=== PATIENT | female | born 1960 | race Caucasian/White ===

== ENCOUNTER 2016-10-21 23:54 | Emergency (ER) | payer OTHER ==
[~2016-10-21] VITALS: Ht 165.1 cm; Wt 61.4 kg
[2016-10-22] MEDS ORDERED: IBUPROFEN 600 MG TABLET PO ONE (01:00)
[2016-10-22] MEDS ORDERED: HYDROmorphone 2 MG/ML SYRINGE IM ONE (01:00)
[2016-10-22] MEDS ORDERED: PROMETHAZINE HCL 25 MG/ML VIAL IM ONE (01:00)
[2016-10-22] MEDS ORDERED: PERTUSS(ACELL),DIPH,TET VAC/PF 0.5 ML VIAL IM ONE (02:00)
[2016-10-22] MEDS ORDERED: SILVER SULFADIAZINE 1% 25 GM CREAM TP ONE (02:00)
[2016-10-22 02:25] VITALS: BP 120/87
== END 2016-10-22 02:29 | disposition home or self-care (01) ==
LOC: EMS 23:56
DX: T25.222A Burn of second degree of left foot, initial encounter (principal); X10.2XXA Contact with fats and cooking oils, initial encounter; Y93.89 Activity, other specified; Y92.511 Restaurant or cafe as the place of occurrence of the external cause; Y99.8 Other external cause status
CPT/HCPCS: 16020; 90471; 90715; 96372; 99284; J1170; J2550; Z7610

== ENCOUNTER 2024-01-03 11:39 | Emergency (ER) | payer OTHER ==
[~2024-01-03] VITALS: Ht 165.1 cm; Wt 54.0 kg
[2024-01-03 11:43] VITALS: TEMP 97.6
[2024-01-03 12:01] LABS: COVID AG,FIA SOURCE NASAL SWAB
[2024-01-03 12:23] LABS: INFLUENZA TYPE A NEGATIVE FOR TYPE A (NEGATIVE); INFLUENZA TYPE B NEGATIVE FOR TYPE B (NEGATIVE)
[2024-01-03 12:31] LABS: SARS-COV2 (COVID) ANTIGEN,FIA Positive (Negative)
[2024-01-03] MEDS ORDERED: NIRM1TAB10 PO (13:31)
[2024-01-03 14:00] VITALS: BP 121/73; PULSE 68; RESP 20; O2SAT 99
== END 2024-01-03 14:05 | disposition home or self-care (01) ==
LOC: EMS 11:39
DX: U07.1 COVID-19 (principal); R53.1 Weakness
CPT/HCPCS: 71045; 87804; 99284